=== PATIENT | male | born 1995 | race African-American/Black ===

== ENCOUNTER → 2018-03-31 | Outpatient (REF) | payer OTHER ==
[2018-03-31 10:25] LABS: #IMMOTILE SPERM COUNTED 1; #MOTILE SPERM COUNTED 1; % MOTILITY 50 (> 40%); SEMEN APPEARANCE OPAQUE (OPAQUE); SEMEN VISCOSITY LIQUID (LIQUID); SEMEN VOLUME 3.6 ML (4.0-5.0); SEMEN WBC <=1 M/ml (<=1 M/ml); SPERM ABNORMAL FORMS WBC'S NOTED; TOTAL # SPERM COUNTED 2 M/ml
[2018-03-31 10:27] LABS: SPERM CONCENTRATION 0.5 M/ml (> 15 M/ml)
== END ==
LOC: M LAB REF 10:02
DX: N46.9 Male infertility, unspecified (principal)

== ENCOUNTER 2018-11-30 21:28 | Emergency (ER) | payer OTHER ==
[~2018-11-30] VITALS: Ht 180.3 cm; Wt 120.9 kg
[2018-11-30 22:23] LABS: BASO % 0.4 % (0.0-1.0); EOS # 0.4 10^3/uL (0.0-0.50); EOS % 5.5 % (0.0-3.0); HEMATOCRIT 38.5 % (42.0-52.0); HEMOGLOBIN 12.9 g/dl (13.5-17.5); LYMPH # 2.5 10^3/uL (1.5-6.5); LYMPH % 37.8 % (24.0-44.0); MEAN CORPUSCULAR HEMOGLOBIN 31.5 pg (27.0-33.0); MEAN CORPUSCULAR HGB CONC 33.5 g/dl (32.0-36.5); MEAN CORPUSCULAR VOLUME 93.9 fl (80.0-96.0); MONO # 0.6 10^3/uL (0.0-0.8); MONO % 8.5 % (0.0-5.0); NEUTROPHILS # 3.2 10^3/uL (1.8-7.7); NEUTROPHILS % 47.7 % (36.0-66.0); PLATELET COUNT, AUTOMATED 239 10^3/uL (150-450); WHITE BLOOD COUNT 6.7 10^3/uL (4.0-10.0)
[2018-11-30] MEDS ORDERED: ALBUTEROL SULFATE 2.5 MG/0.5 ML INH NEB SOLN INH ONE (22:30)
[2018-11-30] MEDS ORDERED: dexameTHASONE 20 MG/5 ML VIAL (J1100) IV ONE (22:30)
--- NOTE | 2018-11-30 22:43 | REPVR ---
EXAM: CT Chest Without Contrast EXAM DATE/TIME: 11/30/2018 10:13 PM CLINICAL HISTORY: 23 years old, male; Pain; Chest pain; Additional info: Chest pain, reported pneumothorax TECHNIQUE: Axial computed tomography images of the chest without intravenous contrast. All CT scans at this facility use at least one of these dose optimization techniques: automated exposure control; mA and/or kV adjustment per patient size (includes targeted exams where dose is matched to clinical indication); or iterative reconstruction. Coronal and sagittal reformatted images were created and reviewed. MIP reconstructed images were created and reviewed. COMPARISON: CR CHEST 2 VIEW 11/30/2018 7:54 PM FINDINGS: Lungs: 10 mm ground glass opacity right middle lobe adjacent to the cardiac border. Pleural space: Normal. No pneumothorax. No pleural effusion. Heart: Normal. No cardiomegaly. No pericardial effusion. Aorta: Normal. No aortic aneurysm. Lymph nodes: Unremarkable. No enlarged lymph nodes. Bones/joints: Unremarkable. No acute fracture. Soft tissues: Unremarkable. IMPRESSION: 10 mm ground glass opacity right middle lobe adjacent to the cardiac border. Recommend CT at 6-12 months to confirm persistence of the nodule, then CT at 3 and at 5 years. (NitinMahoeden, et al., Fleischner Society, 2017). Note for patients under age 35 the following additional optional recommendations: If patient does not have known cancer, follow up should be based on clinical information because of the low risk of cancer in this age group. (Kvnghoeden, et al., Fleischner Society, 2017) Electronically signed by: Indra Haynes On 11/30/2018 22:42:40 PM
[2018-11-30 22:49] LABS: BLOOD UREA NITROGEN 17 MG/DL (7-18); CALCIUM LEVEL 8.9 MG/DL (8.5-10.1); CARBON DIOXIDE LEVEL 26 MEQ/L (21-32); CHLORIDE LEVEL 105 MEQ/L (98-107); CPK CREATINE PHOSPHOKINASE 734 U/L (39-308); CREATININE FOR GFR 1.45 MG/DL (0.70-1.30); GLOMERULAR FILTRATION RATE > 60.0 (>60); GLUCOSE, FASTING 97 MG/DL (70-100); MB/CK RELATIVE INDEX 0.37 (< OR =4); POTASSIUM SERUM 3.1 MEQ/L (3.5-5.1); SODIUM LEVEL 139 MEQ/L (136-145); TROPONIN I < 0.02 NG/ML (< 0.10)
[2018-11-30] MEDS ORDERED: ALBU17IN2 INH (23:01)
[2018-11-30] MEDS ORDERED: DOXY-350 PO (23:01)
[2018-11-30] MEDS ORDERED: PRED20TA PO (23:01)
[2018-11-30] MEDS ORDERED: DOXYCYCLINE HYCLATE 100 MG TAB PO ONE (23:15)
[2018-11-30 23:22] VITALS: BP 134/84
--- NOTE | 2018-12-02 16:12 | ED PDOC ---
Post-Departure Follow-Up radha malave faxaed formal report of ct chest for Gage Dong MD Dec 02, 2018 16:12
== END 2018-11-30 23:48 | disposition home or self-care (01) ==
LOC: M ED 21:28
DX: J18.9 Pneumonia, unspecified organism (principal); J40 Bronchitis, not specified as acute or chronic; R91.8 Other nonspecific abnormal finding of lung field; Z87.891 Personal history of nicotine dependence
CPT/HCPCS: 71046; 71250; 80048; 82550; 82553; 84484; 85025; 93041; 94760; 96374; 99284; J1100

== ENCOUNTER → 2018-11-30 | Outpatient (CLI) | payer OTHER ==
[~2018-11-30] MED LIST: ALBU17IN2 INH; DOXY-350 PO; PRED20TA PO
--- NOTE | 2018-12-01 02:17 | REP ---
Clinical: Acute chest pain . Comparison: None . Technique: PA and lateral. Findings: The mediastinum and cardiac silhouette are normal. The lung torres are clear and without acute consolidation, effusion, or pneumothorax. The skeletal structures are intact and normal. Impression: 1. No acute cardiopulmonary process. Electronically Signed by Vinayak Valdovinos MD 12/01/2018 02:08 A
== END ==
LOC: M LRY 19:51
PROVIDERS: ATTEND Physician Assistant
DX: R07.9 Chest pain, unspecified (principal); R06.02 Shortness of breath

== ENCOUNTER → 2019-02-18 | Outpatient (REF) | payer OTHER ==
[2019-02-18 10:11] LABS: SEMEN APPEARANCE OPAQUE (OPAQUE); SEMEN VISCOSITY LIQUID (LIQUID); SEMEN VOLUME 2.7 ml (4.0-5.0)
[2019-02-18 10:12] LABS: SPERM CONCENTRATION 15.9 M/ml (>=15.0); WBC CONCENTRATION <=1 M/ml (<=1 M/ml)
== END ==
LOC: M LAB REF 10:04
PROVIDERS: ATTEND Obstetrics & Gynecology
DX: N46.8 Other male infertility (principal)

== ENCOUNTER → 2019-03-25 | Outpatient (REF) | payer OTHER ==
[2019-03-25 14:20] LABS: SEMEN APPEARANCE OPAQUE (OPAQUE); SEMEN VISCOSITY LIQUID (LIQUID); SEMEN VOLUME 3.2 ML (4.0-5.0); SEMEN WBC <=1 M/ml (<=1 M/ml); SEMEN pH 8.5 (7.0-8.0)
== END ==
LOC: M LAB REF 13:19
PROVIDERS: ATTEND Obstetrics & Gynecology
DX: N46.8 Other male infertility (principal)